=== PATIENT | male | born 1940 | race Caucasian/White ===

== ENCOUNTER 2016-10-16 08:18 | Day surgery (SDC) | payer MEDICARE, BC ==
[2016-10-16] MEDS ORDERED: TOBRAMYCIN 0.3% OPTH DROP 5 ML BTL OPTH ONE (13:00)
[2016-10-16] MEDS ORDERED: TETRACAINE HCL 0.5% 15 ML OPTH BTL OPTH ONE (13:00)
[2016-10-16] MEDS ORDERED: PREDNISOLONE ACETATE 1% OPTH 10ML BOTTLE OPTH ONE (13:00)
[2016-10-16] MEDS ORDERED: DICLOFENAC SODIUM 2.5 ML DROPS OPTH ONE (13:00)
[2016-10-16] MEDS ORDERED: NEOMYCIN/POLY./DEXAM OPTH OINT OPTH ONE (13:00)
[2016-10-16] MEDS ORDERED: EPINEPHRINE 1 MG/ML AMPUL SQ ONE (13:00)
[2016-10-16] MEDS ORDERED: LIDOCAINE 2% MDV (20MG/ML) 20ML VIAL IV ONE ×2 (13:00→13:52)
[2016-10-16] MEDS ORDERED: PHENYLEPHRINE HCL 10% OPTH BTL OPTH ONE (13:00)
[2016-10-16] MEDS ORDERED: TROPICAMIDE 1% 15ML BTL OP ONE (13:00)
[2016-10-16] MEDS ORDERED: PROPOFOL 10 MG/ML VIAL IV ONE (13:52)
--- NOTE | 2016-10-16 14:58 | Operative Note ---
DATE OF PROCEDURE: 10/16/16 PREOPERATIVE DIAGNOSIS: NUCLEAR SCLEROTIC CATARACT, RIGHT EYE. POSTOPERATIVE DIAGNOSIS: NUCLEAR SCLEROTIC CATARACT, RIGHT EYE. PROCEDURE: PHACOEMULSIFICATION OF CATARACTOUS LENS WITH IMPLANTATION OF INTRA- OCULAR LENS. SURGEON: MATHEUS RAHMAN M.D. LENS IMPLANT USED: YANES MODEL PCB00 +22.5 DIOPTERS. COMPLICATIONS: NONE. PROCEDURE: The patient was given reference cristel at the 0 and 180-degree position prior to being blocked in the usual fashion with the retrobulbar block in the right eye. The patient was then prepped and draped in the usual fashion and a lid speculum placed in the right eye. At this point, the corneal marker was used to create markings on the cornea at 168 degrees after which, a scleral tunnel wound was placed at the temporal limbus of 2.4 mm cord length. A paracentesis was placed 2 hours to the left and right of this and the chamber deepened with Viscoelastic. The keratome was used to enter through the scleral tunnel wound after which the continuous circular capsulorrhexis was accomplished without difficulty. Hydrodissection of the lens was performed and the nucleus of the lens was removed in a divide and conquer fashion. The residual cortical material was irrigated and aspirated from the eye and the bag and chamber were then reinflated with Viscoelastic. The intraocular lens was placed into the capsular bag and oriented to a position 10 degrees shorter the intended final access. The residual Viscoelastic was removed from the eye and the eye was then reinflated and the intraocular lens dialed into position at 168 degrees. The wound was noted to be water-tight to direct encounter pressure. The lid speculum was removed and the eye was patched and shielded to be re-examined later in the afternoon. Matheus Rahman M.D. Date & Time JOB NUMBER: [id number] MTDD
== END 2016-10-16 11:00 | disposition home or self-care (01) ==
LOC: SUR 08:18
PROVIDERS: ATTEND Ophthalmology
DX: H25.11 Age-related nuclear cataract, right eye (principal); Z79.01 Long term (current) use of anticoagulants; I10 Essential (primary) hypertension
CPT/HCPCS: J0171

== ENCOUNTER 2016-12-13 06:53 | Emergency (ER) | payer MEDICARE, BC ==
--- NOTE | 2016-12-13 07:24 | Emergency Department Record ---
History of Present Illness - General Chief Complaint: Dizziness Stated Complaint: "BALANCE OFF" Time Seen by Provider: 12/13/16 07:10 Source: Patient Mode of Arrival: Ambulatory Limitations: No limitations - History of Present Illness Initial Comments: 76 yo male presents with a vague lightheaded feeling and dizziness this morning that was noted at 4:30am upon waking. He is able to walk without any difficulty. No vision changes, no speech changes, no memory changes. He has been in chronic constant atrial fibrillation for many years. He is on Xarelto. He is followed by Dr Roque and Dr Rivera. No chest pain. No shortness of breath. No weakness or the arms or legs. No numbness or tingling. MD Complaint: Lightheadedness Onset/Timin -: Hour(s) Timing: Awoke with symptoms Description: Lightheadedness, Off-balance History of Same: No History of Trauma: No Severity: Mild Improves With: Nothing Worsens With: Nothing Associated Symptoms: Fever/chills - Moody Coma Scale Eye Response: (4) Open spontaneously Motor Response: (6) Obeys commands Verbal Response: (5) Oriented Moody Total: 15 - Related Data Home Medications Medication Instructions Recorded Confirmed Last Taken Amlodipine Besylate [Norvasc] 5 mg PO DAILY 04/13/15 12/13/16 Unknown Atenolol 100 mg PO DAILY 04/13/15 12/13/16 12/13/16 Finasteride [Proscar] 5 mg PO DAILY 04/13/15 12/13/16 Unknown Omeprazole 20 mg PO DAILY 04/13/15 12/13/16 Unknown Rivaroxaban [Xarelto] 20 mg PO DAILY 04/13/15 12/13/16 Unknown Telmisartan [Micardis] 80 mg PO QHS 04/13/15 12/13/16 Unknown Terazosin HCl 10 mg PO BIDDIUR 04/13/15 12/13/16 Unknown Previous Rx's Medication Instructions Recorded Meclizine HCl [Antivert] 25 mg PO Q8H #15 tablet 12/13/16 Allergies Allergy/AdvReac Type Severity Reaction Status Date / Time NO KNOWN DRUG ALLERGY Allergy Unknown Uncoded 02/06/14 10:04 Travel Screening - Travel/Exposure Within Last 30 Days Have you traveled within the last 30 days?: No Review of Systems Constitutional: Denies: Chills, Fever, Malaise, Weakness Eyes: Denies: Eye discharge ENT: Denies: Congestion, Throat pain Respiratory: Denies: Cough Cardiovascular: Denies: Chest pain, Palpitations, Syncope Endocrine: Denies: Fatigue Gastrointestinal: Denies: Abdominal pain, Diarrhea, Nausea, Vomiting Genitourinary: Denies: Hematuria, Urgency Musculoskeletal: Denies: Arthralgia, Back pain, Joint swelling, Myalgia, Neck pain Skin: Denies: Bruising, Change in color, Rash Neurological: Reports: Vertigo. Denies: Confusion, Headache, Numbness, Paresthesias, Seizure, Tingling, Tremors, Weakness Psychiatric: Denies: Anxiety Hematological/Lymphatic: Denies: Anemia, Blood Clots, Easy bleeding, Easy bruising, Swollen glands Past Medical History - SOCIAL HISTORY Smoking Status: Never smoker Alcohol Use: None Drug Use: None - RESPIRATORY Hx Respiratory Disorders: No - CARDIOVASCULAR Hx Cardio Disorders: Yes Hx Abnormal EKG: Yes (afib controlled) Hx Hypertension: Yes Hx Irregular Heartbeat: Yes - NEURO Hx Neuro Disorders: No Comment:: hx double vision some form of palsy - GI Hx GI Disorders: Yes Hx Reflux: Yes Hx Ulcer: Yes - Hx Genitourinary Disorders: Yes Hx Prostate Problems: Yes (enlarged) - ENDOCRINE Hx Endocrine Disorders: No - MUSCULOSKELETAL Hx Musculoskeletal Disorders: No - PSYCH Hx Psych Problems: No - HEMATOLOGY/ONCOLOGY Hx Hematology/Oncology Disorders: Yes Hx Bruising: Yes Hx Blood Transfusions: Yes (with esopageal ulcers) Hx Blood Transfusion Reaction: No Family Medical History Any Significant Family History?: Yes Hx Cancer: Father Hx Heart Disease: Father, Mother Physical Exam - General General Appearance: Alert, Oriented x3, Cooperative, No acute distress Limitations: No limitations - Head Head exam: Normal inspection - Eye Eye exam: Normal appearance, PERRL. negative: Conjunctival injection, Periorbital swelling - ENT ENT exam: Normal exam, Mucous membranes moist, Normal external ear exam, Normal orophraynx Ear exam: Normal external inspection. negative: External canal tenderness Nasal Exam: Normal inspection. negative: Discharge, Sinus tenderness Mouth exam: Normal external inspection, Tongue normal Teeth exam: Normal inspection. negative: Dental caries Throat exam: Normal inspection. negative: Tonsillar erythema, Tonsillar exudate - Neck Neck exam: Normal inspection, Full ROM. negative: Tenderness - Respiratory Respiratory exam: Normal lung sounds bilaterally. negative: Respiratory distress - Cardiovascular Cardiovascular Exam: Regular rate, Normal heart sounds, Irregular rhythm. negative: Normal rhythm, Tachycardia Peripheral Pulses: 2+: Radial (R), Radial (L) - GI/Abdominal GI/Abdominal exam: Soft. negative: Distended, Tenderness - Rectal Rectal exam: Deferred - exam: Deferred - Extremities Extremities exam: Normal inspection, Full ROM, Normal capillary refill. negative: Tenderness - Back Back exam: Reports: Normal inspection, Full ROM. Denies: Muscle spasm, Rash noted, Tenderness - Neurological Neurological exam: Alert, CN II-XII intact, Normal gait, Oriented X3, Reflexes normal, Other (Normal gate, normal FTN, normal REMEDIOS, No PND.). negative: Motor sensory deficit - Psychiatric Psychiatric exam: Normal affect, Normal mood - Skin Skin exam: Dry, Intact, Normal color, Warm Course Vital Signs 12/13/16 07:00 Temperature 97.4 F L Pulse Rate 78 Respiratory 14 Rate Blood Pressure 171/103 Pulse Ox 98 - Reevaluation(s) Reevaluation #1: EKG Irregular rhythm, afib, rate 76, Intervals normal, Lando normal, ST No acute changes. June 06 afib as well. 12/13/16 07:11 Reevaluation #2: Holter form 10/2014 was read a Afib with VR 47 to 194. No symptoms. Some PVC's. 12/13/16 07:38 Reevaluation #3: No acute changes on the labs The HCT was negative for acute changes The patient is resting comfortably without any symptoms No dizziness or room spinning with turn the head quickly side to side several times 12/13/16 08:16 Reevaluation #4: The patient continues to do well No dizziness Recheck neuro exam is still normal FTN, REMEDIOS, gate, no PND. We discussed close follow up with Dr Rivera Thursday and return if any return of symptoms. 12/13/16 09:05 Medical Decision Making - Lab Data Result diagrams: 12/13/16 07:35 12/13/16 07:35 Disposition Disposition: Discharge Clinical Impression: Dizziness, Chronic atrial fibrillation, Vertigo Disposition: Home, Self-Care Condition: (1) Good Instructions: Dizziness (ED) Additional Instructions: Rest and stay well hydrated Call Dr Rivera on Thursday for a recheck Return to the ER if you have any return of your symptoms You may take the Antivert if mild symptoms return. This will cause drowsiness. Prescriptions: Meclizine HCl [Antivert] 25 mg PO Q8H #15 tablet Forms: Patient Portal Access Time of Disposition: 09:06
[2016-12-13] MEDS ORDERED: MECLIZINE 25 MG TABLET PO ONE ×2 (07:25→09:06)
[2016-12-13] MEDS ORDERED: 0.9 % SODIUM CHLORIDE 1,000 ML BAG IV ONE (07:25)
[2016-12-13 07:47] LABS: BASO % 0.4 % (0-6); EOS % 0.9 % (0-6); GRAN % 76.8 % (47-80); HEMATOCRIT 40.2 % (42.0-52.0); LYMPH % 14.3 % (16-45); MEAN CELL VOLUME 96.6 fl (81-97); MEAN CORPUSCULAR HGB CONC 32.3 g/dl (32-36); MEAN PLATELET VOLUME 10.7 fl (7.4-10.4); MONO % 7.6 % (0-9); PLATELET COUNT 222 K/uL (130-400); RED BLOOD COUNT 4.16 M/uL (4.40-5.70); RED CELL DISTRIBUTION WIDTH 13.4 % (11.5-14.5); WHITE BLOOD COUNT W/O DIFF 5.5 K/uL (4.2-12.2)
[2016-12-13 07:48] LABS: MEAN CORPUSCULAR HEMOGLOBIN 31.2 pg (27-33)
[2016-12-13 07:58] LABS: ALB/GLOB RATIO 1.1 (1.1-1.8); ALBUMIN 3.7 gm/dL (3.5-5.0); ALKALINE PHOSPHATASE 118 U/L (38-126); ALT/SGPT 27 U/L (21-72); ANION GAP 7.5 (7-16); AST/SGOT 24 U/L (17-59); BILIRUBIN,TOTAL 0.51 mg/dL (0.2-1.3); BLOOD UREA NITROGEN 18 mg/dL (9-20); CARBON DIOXIDE 31.5 mmol/L (22-30); EST GLOMERULAR FILTRATION RATE > 60 ml/min; GLUCOSE,RANDOM 126 mg/dL (70-110); TOTAL PROTEIN 7.1 gm/dL (6.3-8.2)
[2016-12-13 08:00] LABS: INR 1.3; PARTIAL THROMBOPLASTIN TIME 32.4 SECONDS (24.5-39.1); PROTHROMBIN TIME (PATIENT) 14.7 SECONDS (9.5-12.1)
[2016-12-13 08:13] LABS: TROPONIN I < 0.012 ng/mL (0.00-0.034)
== END 2016-12-13 09:21 | disposition home or self-care (01) ==
LOC: ER 06:53
DX: R42 Dizziness and giddiness (principal); I48.2 Chronic atrial fibrillation; Z79.01 Long term (current) use of anticoagulants; I10 Essential (primary) hypertension
CPT/HCPCS: 70450; 80053; 84484; 85025; 85610; 85730; 93005; 93010; 96360; 99284; J7030

== ENCOUNTER 2017-08-15 09:17 | Emergency (ER) | payer MEDICARE, BC ==
--- NOTE | 2017-08-15 09:46 | Emergency Department Record ---
History of Present Illness - General Chief complaint: Nausea, Vomiting, Diarrhea Stated complaint: CHILLS,NAUSEA Time Seen by Provider: 08/15/17 09:34 Source: Patient, RN notes reviewed Mode of Arrival: Ambulatory - History of Present Illness Initial comments: patient had cystoscopy yesterday and nausea this am and weak and no fever and he took his second bactrim DS pill this am. He was told the hematuria was from his enlarged prostate and Dr. Davidson recommended laser surg. complaint: Nausea Onset/Timin -: Hour(s) Associated Symptoms: Nausea/vomiting - Related Data Previous Rx's Medication Instructions Recorded Sulfamethoxazole/Trimethoprim 1 each PO BID #14 tablet 08/15/17 [Bactrim Ds Tablet] Allergies Allergy/AdvReac Type Severity Reaction Status Date / Time NO KNOWN DRUG ALLERGY Allergy Unknown Uncoded 02/06/14 10:04 Travel Screening - Travel/Exposure Within Last 30 Days Have you traveled within the last 30 days?: No - Travel/Exposure Within Last Year Have you traveled outside the [place] in the last year?: No - Additonal Travel Details Have you been exposed to anyone with a communicable illness?: No - Travel Symptoms Symptom Screening: None Review of Systems Reviewed: No additional complaints except as noted below Constitutional: Reports: As per HPI. Denies: Chills, Fever, Malaise, Night sweats, Weakness, Weight change Eyes: Reports: As per HPI. Denies: Eye discharge, Eye pain, Photophobia, Vision change ENT: Reports: As per HPI. Denies: Congestion, Dental pain, Ear pain, Epistaxis , Hearing loss, Throat pain Respiratory: Reports: As per HPI. Denies: Cough, Dyspnea, Hemoptysis, Stridor, Wheezes Cardiovascular: Reports: As per HPI. Denies: Arrhythmia, Chest pain, Dyspnea on exertion, Edema, Murmurs, Orthopnea, Palpitations, Paroxysmal nocturnal dyspnea, Rheumatic Fever, Syncope Endocrine: Reports: As per HPI. Denies: Fatigue, Heat or cold intolerance, Polydipsia, Polyuria Gastrointestinal: Reports: As per HPI. Denies: Abdominal pain, Constipation, Diarrhea, Hematemesis, Hematochezia, Melena, Nausea, Vomiting Genitourinary: Reports: As per HPI. Denies: Dysuria, Frequency, Hematuria, Incontinence, Retention, Testicular pain, Testicular mass, Urgency Musculoskeletal: Reports: As per HPI. Denies: Arthralgia, Back pain, Gout, Joint swelling, Myalgia, Neck pain Skin: Reports: As per HPI. Denies: Bruising, Change in color, Change in hair/ nails, Lesions, Pruritus, Rash Neurological: Reports: As per HPI. Denies: Abnormal gait, Confusion, Headache, Numbness, Paresthesias, Seizure, Tingling, Tremors, Vertigo, Weakness Psychiatric: Reports: As per HPI. Denies: Anxiety, Auditory hallucinations, Depression, Homicidal thoughts, Suicidal thoughts, Visual hallucinations Hematological/Lymphatic: Reports: As per HPI. Denies: Anemia, Blood Clots, Easy bleeding, Easy bruising, Swollen glands Past Medical History - SOCIAL HISTORY Smoking Status: Never smoker Alcohol Use: None Drug Use: None - RESPIRATORY Hx Respiratory Disorders: No - CARDIOVASCULAR Hx Cardio Disorders: Yes Hx Abnormal EKG: Yes (afib controlled) Hx Hypertension: Yes Hx Irregular Heartbeat: Yes - NEURO Hx Neuro Disorders: No Comment:: hx double vision some form of palsy - GI Hx GI Disorders: Yes Hx Reflux: Yes Hx Ulcer: Yes - Hx Genitourinary Disorders: Yes Hx Prostate Problems: Yes (enlarged) - ENDOCRINE Hx Endocrine Disorders: No - MUSCULOSKELETAL Hx Musculoskeletal Disorders: No - PSYCH Hx Psych Problems: No - HEMATOLOGY/ONCOLOGY Hx Hematology/Oncology Disorders: Yes Hx Bruising: Yes Hx Blood Transfusions: Yes (with esopageal ulcers) Hx Blood Transfusion Reaction: No Family Medical History Any Significant Family History?: No Hx Cancer: Father Hx Heart Disease: Father, Mother Physical Exam - General General Appearance: Alert, Oriented x3, Cooperative, Mild distress - Head Head exam: Normal inspection - Eye Eye exam: Normal appearance, PERRL Pupils: Normal accommodation - ENT ENT exam: Normal exam, Mucous membranes moist, Normal external ear exam, Normal orophraynx, TM's normal bilaterally Ear exam: Normal external inspection. negative: External canal tenderness Nasal Exam: Normal inspection. negative: Discharge, Sinus tenderness Mouth exam: Normal external inspection, Tongue normal Teeth exam: Normal inspection. negative: Dental caries Throat exam: Normal inspection. negative: Tonsillar erythema, Tonsillar exudate - Neck Neck exam: Normal inspection, Full ROM. negative: Tenderness - Respiratory Respiratory exam: Normal lung sounds bilaterally. negative: Respiratory distress - Cardiovascular Cardiovascular Exam: Regular rate, Normal rhythm, Normal heart sounds - GI/Abdominal GI/Abdominal exam: Soft, Normal bowel sounds. negative: Tenderness - Rectal Rectal exam: Deferred - exam: Deferred - Extremities Extremities exam: Normal inspection, Full ROM, Normal capillary refill. negative: Tenderness - Back Back exam: Reports: Normal inspection, Full ROM. Denies: Muscle spasm, Rash noted, Tenderness - Neurological Neurological exam: Alert, Normal gait, Oriented X3, Reflexes normal - Psychiatric Psychiatric exam: Normal affect, Normal mood - Skin Skin exam: Dry, Intact, Normal color, Warm Course Vital Signs 08/15/17 09:21 Temperature 98.5 F Pulse Rate 91 H Respiratory 16 Rate Blood Pressure 137/88 Pulse Ox 97 Medical Decision Making - Lab Data Result diagrams: 08/15/17 09:56 08/15/17 09:56 Disposition Clinical Impression: Nausea Disposition: Home, Self-Care Condition: (1) Good Instructions: Acute Nausea and Vomiting (ED) Additional Instructions: clear liquids and gradually increase his diet and call the office if worse. follow up with me on Prescriptions: Sulfamethoxazole/Trimethoprim [Bactrim Ds Tablet] 1 each PO BID #14 tablet Forms: Patient Portal Access Time of Disposition: 12:59 Quality - Quality Measures Quality Measures: N/A - Blood Pressure Screening Does Patient Have Any of the Following: No Blood Pressure Classification: Pre-Hypertensive BP Reading Systolic Measurement: 137 Diastolic Measurement: 88 Screening for High Blood Pressure: < Pre-Hypertensive BP, F/U Documented > [ G8950] Pre-Hypertensive Follow-up Interventions: Referral to alternative/primary care provider.
[2017-08-15] MEDS: 0.9 % SODIUM CHLORIDE 1,000 ML BAG IV ONE (09:58)
[2017-08-15] MEDS: ONDANSETRON HCL IV 4 MG/2 ML VIAL IVP ONE (09:58)
[2017-08-15 10:09] LABS: HEMATOCRIT 40.3 % (42.0-52.0); MEAN CELL VOLUME 94.8 fl (81-97); MEAN CORPUSCULAR HGB CONC 32.3 g/dl (32-36); MEAN PLATELET VOLUME 10.7 fl (7.4-10.4); PLATELET COUNT 190 K/uL (130-400); RED BLOOD COUNT 4.25 M/uL (4.40-5.70); RED CELL DISTRIBUTION WIDTH 13.9 % (11.5-14.5); WHITE BLOOD COUNT W/O DIFF 8.1 K/uL (4.2-12.2)
[2017-08-15 10:12] LABS: URINE APPEARANCE SL CLOUDY; URINE BILIRUBIN NEGATIVE (NEGATIVE); URINE BLOOD MODERATE (NEGATIVE); URINE COLOR YELLOW; URINE GLUCOSE (UA) NEGATIVE (NEGATIVE); URINE KETONE NEGATIVE (NEGATIVE); URINE LEUKOCYTE ESTERASE NEGATIVE (NEGATIVE); URINE NITRITE NEGATIVE (NEGATIVE); URINE PROTEIN NEGATIVE (NEGATIVE)
[2017-08-15 10:17] LABS: MEAN CORPUSCULAR HEMOGLOBIN 30.5 pg (27-33)
[2017-08-15 10:20] LABS: BLOOD UREA NITROGEN 21 mg/dL (8-23); CREATININE 1.1 mg/dL (0.7-1.2); EST GLOMERULAR FILTRATION RATE > 60 mL/min; GLUCOSE,RANDOM 136 mg/dL (74-109)
[2017-08-15 10:21] LABS: URINE RBC 21 - 35 (NONE SEEN); URINE SQUAMOUS EPITHELIAL CELL 0 - 2 /hpf; URINE WBC 0 - 2 (0-2/hpf)
[2017-08-15 10:22] LABS: URINE AMORPHOUS SEDIMENT 1+
== END 2017-08-15 13:30 | disposition home or self-care (01) ==
LOC: ER 09:17
DX: R11.2 Nausea with vomiting, unspecified (principal); R19.7 Diarrhea, unspecified; R31.29 Other microscopic hematuria; N40.0 Benign prostatic hyperplasia without lower urinary tract symptoms; I48.91 Unspecified atrial fibrillation; I10 Essential (primary) hypertension
CPT/HCPCS: 99284 ×2; 96374; 96361; 80048; 81001; 85027; J2405; J7030

== ENCOUNTER 2019-02-06 14:01 | Emergency (ER) | payer MEDICARE, BC ==
--- NOTE | 2019-02-06 14:23 | Emergency Department Record ---
History of Present Illness - General Chief complaint: Extremity Problem Stated complaint: RT INDEX FINGER BROKE? Time Seen by Provider: 02/06/19 14:18 Source: Patient Mode of Arrival: Ambulatory Limitations: No limitations - History of Present Illness Initial comments: 78 yo male presents with a right ring finger injury. He was preventing himself from falling. He now has a deformity of the ring finger. The skin is intact. He is not able to extend the finger MD Complaint: Joint pain -: Minutes(s) Location: Right History of Same: No -: Yes Arthralgia Radiation: Distal Quality: Aching Consistency: Constant Improves with: Nothing Worsens with: Nothing Associated Symptoms: Denies other symptoms - Related Data Previous Rx's Medication Instructions Recorded Sulfamethoxazole/Trimethoprim 1 each PO BID #14 tablet 08/15/17 [Bactrim Ds Tablet] Allergies Allergy/AdvReac Type Severity Reaction Status Date / Time NO KNOWN DRUG ALLERGY Allergy Unknown no Uncoded 02/06/19 14:25 allergies Review of Systems Constitutional: Denies: Chills, Fever, Malaise, Weakness Eyes: Denies: Eye discharge ENT: Denies: Congestion, Throat pain Respiratory: Denies: Cough Cardiovascular: Denies: Chest pain Endocrine: Denies: Fatigue Gastrointestinal: Denies: Abdominal pain, Diarrhea, Nausea, Vomiting Genitourinary: Denies: Dysuria, Frequency, Hematuria Musculoskeletal: Reports: As per HPI, Arthralgia, Other (Recent left elbow fracture) Skin: Denies: Bruising, Change in color, Rash Neurological: Denies: Headache Psychiatric: Denies: Anxiety Hematological/Lymphatic: Denies: Easy bleeding, Easy bruising Past Medical History - SOCIAL HISTORY Smoking Status: Never smoker Drug Use: None - RESPIRATORY Hx Respiratory Disorders: No - CARDIOVASCULAR Hx Cardio Disorders: Yes Hx Abnormal EKG: Yes (afib controlled) Hx Hypertension: Yes Hx Irregular Heartbeat: Yes - NEURO Hx Neuro Disorders: No Comment:: hx double vision some form of palsy - GI Hx GI Disorders: Yes Hx Reflux: Yes Hx Ulcer: Yes - Hx Genitourinary Disorders: Yes Hx Prostate Problems: Yes (enlarged) - ENDOCRINE Hx Endocrine Disorders: No - MUSCULOSKELETAL Hx Musculoskeletal Disorders: No - PSYCH Hx Psych Problems: No - HEMATOLOGY/ONCOLOGY Hx Hematology/Oncology Disorders: Yes Hx Bruising: Yes Hx Blood Transfusions: Yes (with esopageal ulcers) Hx Blood Transfusion Reaction: No Family Medical History Hx Cancer: Father Hx Heart Disease: Father, Mother Physical Exam - General General Appearance: Alert, Oriented x3, Cooperative, No acute distress Limitations: No limitations - Head Head exam: Atraumatic, Normal inspection - Eye Eye exam: Normal appearance. 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 negative: Normal inspection, Full ROM, Normal capillary refill Image of Hand: 1 - Bouteniere deformity 2 - held in abnormal flexion at the PIP - Neurological Neurological exam: Alert, Oriented X3 - Psychiatric Psychiatric exam: Normal affect, Normal mood - Skin Skin exam: Dry, Intact, Normal color, Warm Course - Reevaluation(s) Reevaluation #1: Small dorsal avulsion fracture of the PIP suggesting tendon rupture He was splinted in extension He has followup with his PCP tomorrow and he has seen Dr Elena in the past as well. 02/06/19 15:10 Disposition Disposition: Discharge Clinical Impression: Finger fracture, right, Injury of extensor tendon of hand Disposition: Home, Self-Care Condition: (1) Good Instructions: Tendon Rupture (ED) Additional Instructions: Use the splint to support the finger injury Call your hand surgeon for follow up of the injury that likely involves a tendon as well Referrals: CHARLENE ELENA [MEDICAL DOCTOR] - Forms: Patient Portal Access Time of Disposition: 14:41 Quality - Quality Measures Quality Measures: N/A - Blood Pressure Screening Does Patient Have Any of the Following: Active Dx of HTN Blood Pressure Classification: Hypertensive Reading Systolic Measurement: 177 Diastolic Measurement: 93 Screening for High Blood Pressure: Patient Exclusion, Hx of HTN [G9744]
--- NOTE | 2019-02-08 08:13 | RADIOLOGY REPORT ---
EXAM: RIGHT FOURTH FINGER HISTORY: PAIN STATUS POST INJURY. TECHNIQUE: Three views of the right fourth finger were obtained. Comparison: None. FINDINGS: There is a mildly displaced fracture involving the radial and volar corner of the distal phalangeal base. There is a mildly comminuted fracture involving the dorsal corner of the middle phalangeal base. There is associated boutonnire deformity suggesting extensor tendon injury. The dorsal corner fracture is displaced proximally. There is no dislocation. There are mild arthritic changes at the metacarpal phalangeal joint. IMPRESSION: 1. MILDLY DISPLACED CORNER FRACTURE AT THE BASE OF THE DISTAL PHALANX. 2. DISPLACED DORSAL CORNER FRACTURE AT THE BASE OF THE MIDDLE PHALANX AT THE INSERTION SITE OF THE EXTENSOR TENDON. JOB NUMBER: [id number] MTDD
== END 2019-02-06 15:21 | disposition home or self-care (01) ==
LOC: ER 14:01
DX: S62.634A Displaced fracture of distal phalanx of right ring finger, initial encounter for closed fracture (principal); S62.624A Displaced fracture of middle phalanx of right ring finger, initial encounter for closed fracture; S66.394A Other injury of extensor muscle, fascia and tendon of right ring finger at wrist and hand level, initial encounter; W01.10XA Fall on same level from slipping, tripping and stumbling with subsequent striking against unspecified object, initial encounter; I10 Essential (primary) hypertension; I48.91 Unspecified atrial fibrillation
CPT/HCPCS: 73140; 99283